=== PATIENT | male | born 1945 | race Caucasian/White ===

== ENCOUNTER → 2018-03-27 | Outpatient (CLI) | payer OTHER | END | disposition home or self-care (01) | LOC: CFH 08:47 | PROVIDERS: ATTEND Internal Medicine Critical Care Medicine | DX: J84.9 Interstitial pulmonary disease, unspecified (principal); J84.10 Pulmonary fibrosis, unspecified; R91.1 Solitary pulmonary nodule | CPT/HCPCS: 71250 ==

== ENCOUNTER → 2018-11-24 | Outpatient (CLI) | payer MEDICARE ==
[~2018-11-24] MED LIST: REGADENOSON 0.4 MG/5 ML SYRINGE ONE
== END | disposition home or self-care (01) ==
LOC: CFH 11:27
PROVIDERS: ATTEND Family Medicine
DX: R06.02 Shortness of breath (principal); I10 Essential (primary) hypertension
CPT/HCPCS: 78452; 93017; 93306; A9502; J2785

== ENCOUNTER 2019-01-05 09:29 | Day surgery (SDC) | payer MEDICARE ==
[~2019-01-05] VITALS: Ht 167.6 cm; Wt 95.5 kg
[2019-01-05 10:15] VITALS: BP 129/70
[2019-01-05] MEDS ORDERED: CALC-680 PO (10:24)
[2019-01-05] MEDS ORDERED: HYDR-3342 PO (10:24)
[2019-01-05] MEDS ORDERED: GLIP-33 PO (10:24)
[2019-01-05] MEDS ORDERED: FLUT16SP INH (10:24)
[2019-01-05] MEDS ORDERED: ALFA250T PO (10:24)
[2019-01-05] MEDS ORDERED: LOSA100T14 PO (10:24)
[2019-01-05] MEDS ORDERED: AMLO-150 PO (10:24)
[2019-01-05] MEDS ORDERED: ASCO500T8 PO (10:24)
[2019-01-05] MEDS ORDERED: FLAX10004 PO (10:24)
[2019-01-05] MEDS ORDERED: CYAN10005 PO (10:24)
[2019-01-05] MEDS ORDERED: ASPI81TA45 PO (10:24)
[2019-01-05] MEDS ORDERED: METO-93 PO (10:24)
[2019-01-05] MEDS ORDERED: MONT10TA9 PO (10:24)
[2019-01-05] MEDS ORDERED: CHOL5000 PO (10:24)
[2019-01-05] MEDS ORDERED: MIDAZOLAM 1 MG/ML, 5ML ONE (10:50)
[2019-01-05] MEDS ORDERED: TICAGRELOR 90 MG TABLET ONE (10:50)
[2019-01-05] MEDS ORDERED: HEPARIN 1,000 UNITS/ML, 10ML ONE (10:50)
[2019-01-05] MEDS ORDERED: FENTANYL PF 100 MCG/2ML ONE (10:50)
[2019-01-05] MEDS ORDERED: LIDOCAINE 2%, 20ML ONE (10:50)
[2019-01-05] MEDS ORDERED: BIVALIRUDIN 250 MG ONE (10:50)
[2019-01-05] MEDS ORDERED: VERAPAMIL 2.5 MG/ML, 2ML ONE (10:50)
[2019-01-05] MEDS ORDERED: NITROGLYCERIN 5 MG/ML, 10ML ONE (10:50)
[2019-01-05 11:02] LABS: ANION GAP 9 mmol/L (5-15); CALCIUM 9.6 mg/dL (8.5-10.1); CHLORIDE 108 mmol/L (98-107); CREATININE 1.47 mg/dL (0.7-1.3)
[2019-01-05] MEDS ORDERED: SODIUM CHLORIDE 0.9% 1,000 ML IV SCH (11:56)
[2019-01-05] MEDS ORDERED: ACETAMINOPHEN 325 MG TABLET PO PRN (12:00)
== END 2019-01-05 15:37 | disposition home or self-care (01) ==
LOC: CACL 09:29
PROVIDERS: ATTEND Internal Medicine Cardiovascular Disease
DX: I25.10 Atherosclerotic heart disease of native coronary artery without angina pectoris (principal); E11.22 Type 2 diabetes mellitus with diabetic chronic kidney disease; I12.9 Hypertensive chronic kidney disease with stage 1 through stage 4 chronic kidney disease, or unspecified chronic kidney disease; N18.3 Chronic kidney disease, stage 3 (moderate); Z79.82 Long term (current) use of aspirin; J84.10 Pulmonary fibrosis, unspecified; Z88.1 Allergy status to other antibiotic agents; Z88.0 Allergy status to penicillin; Z88.8 Allergy status to other drugs, medicaments and biological substances; Z79.84 Long term (current) use of oral hypoglycemic drugs; Z95.5 Presence of coronary angioplasty implant and graft
CPT/HCPCS: 36415; 80048; 93459; 99156; C1760; C1769; C1894; J1644; J2250; J3010; Q9967; J0583

== ENCOUNTER 2019-02-12 10:22 | Outpatient (CLI) | payer MEDICARE ==
[~2019-02-12 10:22] MED LIST changes: +ALFA250T PO; +AMLO-150 PO; +ASCO500T8 PO; +ASPI81TA45 PO; +CALC-680 PO; +CHOL5000 PO; +CYAN10005 PO; +FLAX10004 PO; +FLUT16SP24 INH; +GLIP-33 PO; +HYDR-3342 PO; +LOSA100T14 PO; +METO-93 PO; +MONT10TA9 PO; -REGADENOSON 0.4 MG/5 ML SYRINGE ONE
== END 2019-02-12 23:59 | disposition home or self-care (01) ==
LOC: CFH 10:22
PROVIDERS: ATTEND Nurse Practitioner Family
DX: J84.9 Interstitial pulmonary disease, unspecified (principal); J84.10 Pulmonary fibrosis, unspecified
CPT/HCPCS: 71250

== ENCOUNTER 2019-08-23 05:53 | Inpatient (IN) | payer MEDICARE ==
[~2019-08-23] VITALS: Ht 170.2 cm; Wt 98.5 kg
[~2019-08-23 05:53] MED LIST changes: +CYAN-27 PO; -CYAN10005 PO
[2019-08-23] MEDS ORDERED: SODIUM CHLORIDE FLUSH 10ML SYR IVF ONE (06:30)
--- NOTE | 2019-08-23 06:58 | NUR ---
PT C/O SOB THAT STARTED SEVERAL MONTHS AGO AND WAS TREATED FOR PNEUMONIA. PT STATES SOB HAS BEEN WORSENING AND ALSO C/O SWELLING AND PAIN IN THE RIGHT ARM/HAND THAT STARTED A MONTH AGO AND HAS WORSENED SO NOW HE IS LOSING MOTOR FUNCTION IN HIS RIGHT HAND. PT WEARS 3 L NC O2 AT HOME. PT ON 3 L NC HERE IN ED. PT ATTACHED TO ALL MONITORS. BC DRAWN X 2 SETS. PT STATES HE FEELS BETTER AND IS BREATHING BETTER NOW THAT HE IS GETTING SUPPLEMENTAL O2.
--- NOTE | 2019-08-23 07:00 | NUR ---
REPORT TO CLARK CINTRON
[2019-08-23 07:03] LABS: BASOPHILS # (AUTO) 0.01 x10^3/uL (0-0.1); BASOPHILS % (AUTO) 0 % (0-1); EOSINOPHILS # (AUTO) 0.26 x10^3/uL (0-0.4); EOSINOPHILS % (AUTO) 2 % (1-7); LYMPHOCYTES # (AUTO) 1.19 x10^3/uL (1-3.4); LYMPHOCYTES % (AUTO) 7 % (22-44); MD NO; MEAN CORPUSCULAR HEMOGLOBIN 29.4 pg (27.5-34.5); MEAN CORPUSCULAR HGB CONC 32.4 g/dL (33.2-36.2); MEAN CORPUSCULAR VOLUME 90.9 fL (81-97); MEAN PLATELET VOLUME 8.3 fL (7.4-10.4); MONOCYTES # (AUTO) 0.81 x10^3/uL (0.2-0.8); MONOCYTES % (AUTO) 5 % (2-9); NEUTROPHILS # (AUTO) 14.26 x10^3/uL (1.8-6.8); NEUTROPHILS % (AUTO) 86 % (42-75); PLATELET COUNT 220 x10^3/uL (130-400); RED BLOOD COUNT 4.16 x10^6/uL (4.38-5.82); RED CELL DISTRIBUTION WIDTH 15.4 % (9.4-14.8)
--- NOTE | 2019-08-23 07:16 | NUR ---
ASSUMED CARE. PT SITTING IN POSITION OF COMFORT, UPRIGHT IN GURNEY. CONTINUE TO MONITOR WHILE AWAITING ULTRASOUND
[2019-08-23 07:17] LABS: ALANINE AMINOTRANSFERASE 178 U/L (12-78); ALBUMIN 2.6 g/dL (3.4-5.0); ANION GAP 7 mmol/L (5-15); CALCIUM 8.8 mg/dL (8.5-10.1); CHLORIDE 104 mmol/L (98-107); CREATININE 1.26 mg/dL (0.7-1.3)
[2019-08-23 07:21] LABS: ALKALINE PHOSPHATASE 152 U/L (45-117); BILIRUBIN,TOTAL 1.1 mg/dL (0.2-1.0); TOTAL PROTEIN 7.6 g/dL (6.4-8.2)
[2019-08-23 07:24] LABS: TROPONIN I 0.515 ng/mL (0.000-0.045)
[2019-08-23] MEDS ORDERED: PRED1TAB19 PO (07:27)
--- NOTE | 2019-08-23 07:33 | NUR ---
OFF FLOOR TO ULTRASOUND
--- NOTE | 2019-08-23 08:09 | NUR ---
AFTER RETURNED FROM ULTRASOUND TO CT
[2019-08-23] MEDS ORDERED: VANCOMYCIN 1,800 MG in SODIUM CHLORIDE 0.9% 250 ML IV ONE (09:00)
[2019-08-23] MEDS ORDERED: CEFEPIME 2 GM in DEXTROSE 5% 100 ML IVPB ONE (09:00)
[2019-08-23] MEDS ORDERED: VANCOMYCIN PER PHARMACY MC ONE (09:00)
--- NOTE | 2019-08-23 09:22 | NUR ---
PT AWARE OF INTENTION TO ADMIT. ANTIBIOTICS INFUSING NOTED ON THE MAR. PT DISPLAYS INCREASE RATE OF BREATHING WHEN CONVERSING BUT SPEAKING IN FULL SENTENCES.
[2019-08-23] MEDS ORDERED: SODIUM CHLORIDE FLUSH 10ML SYR IVF PRN (09:30)
[2019-08-23] MEDS ORDERED: BENZ-17 PO (09:58)
[2019-08-23] MEDS ORDERED: OMNIPAQUE 350 MG/ML, 100ML BOTTLE ONE (10:50)
[2019-08-23] MEDS ORDERED: ONDANSETRON ODT 4 MG PO PRN (12:00)
[2019-08-23] MEDS ORDERED: morphine SULFATE 10 MG/ML, 1ML IVPush PRN (12:00)
[2019-08-23] MEDS ORDERED: POLYETHYLENE GLYCOL 17 GM PACKET PO PRN (12:00)
[2019-08-23] MEDS ORDERED: BISACODYL 10 MG SUPP PR PRN (12:00)
[2019-08-23] MEDS ORDERED: hydrALAzine 20 MG/ML, 1ML IVPush PRN (12:00)
[2019-08-23] MEDS ORDERED: PIPERACILLIN/TAZO/PMX 3.375GM 50 ML IV SCH (12:00)
[2019-08-23] MEDS ORDERED: PROMETHAZINE 25 MG/ML, 1ML IM PRN (12:00)
--- NOTE | 2019-08-23 12:00 | NUR ---
AFTER HOSPITALIST EVALUATION, PT UOB AND TO BATHROOM WITH PORTABLE OXYGEN. STEADY GAIT, INCREASED WOB WITH AMBULATION. ON RETURN TO ROOM PLACED ON HOSPITAL BED WHILE AWAITING ROOM ASSIGNMENT.
--- NOTE | 2019-08-23 12:33 | NUR ---
REPORT TO CALI RODAS. PT TO BE TRANSPORTED TO FLOOR.
[2019-08-23 12:56] LABS: FREE T4 (FREE THYROXINE) 1.33 ng/dL (0.76-1.46); PSA SCREEN 1.67 ng/mL (0.00-4.00)
[2019-08-23 13:23] LABS: INTERNATIONAL NORMALIZED RATIO 1.07 (0.93-1.1); PROTHROMBIN TIME 11.2 Seconds (9.6-11.5)
[2019-08-23 14:00] VITALS: BP 130/78
[2019-08-23 14:18] VITALS: BP 130/78
[2019-08-23] MEDS ORDERED: METRONIDAZOLE PMX 500MG/100ML 100 ML IV SCH (15:00)
[2019-08-23 15:04] LABS: TROPONIN I 0.523 ng/mL (0.000-0.045)
[2019-08-23] MEDS: GUAIFENESIN ER 600 MG TABLET PO SCH (15:33)
[2019-08-23] MEDS: LACTATED RINGERS 1,000 ML IV SCH ×2 (15:33→22:00)
[2019-08-23 16:23] LABS: MICROSCOPIC AUTO
[2019-08-23 16:46] LABS: CULTURE INDICATED? NO
[2019-08-23] MEDS: ERTAPENEM 1 GM in SODIUM CHLORIDE 0.9% 50 ML IV SCH (17:54)
[2019-08-23 19:55] VITALS: BP 126/76
[2019-08-23 20:42] LABS: TROPONIN I 0.466 ng/mL (0.000-0.045)
[2019-08-23] MEDS: ASCORBIC ACID 500 MG TABLET PO SCH (21:00)
[2019-08-23] MEDS: CALCIUM CITRATE 950 MG TABLET PO SCH (21:00)
[2019-08-23] MEDS ORDERED: CEFEPIME 2 GM in DEXTROSE 5% 100 ML IV SCH (21:00)
[2019-08-23] MEDS: FLUTICASONE NASAL SPRAY 16GM NAS SCH (21:00)
[2019-08-24 02:10] VITALS: BP 148/74
[2019-08-24] MEDS: GUAIFENESIN ER 600 MG TABLET PO SCH ×2 (03:22→16:13)
[2019-08-24 05:22] LABS: BASOPHILS # (AUTO) 0.03 x10^3/uL (0-0.1); BASOPHILS % (AUTO) 0 % (0-1); EOSINOPHILS # (AUTO) 0.18 x10^3/uL (0-0.4); EOSINOPHILS % (AUTO) 1 % (1-7); LYMPHOCYTES # (AUTO) 1.35 x10^3/uL (1-3.4); LYMPHOCYTES % (AUTO) 11 % (22-44); MD NO; MEAN CORPUSCULAR HEMOGLOBIN 29.5 pg (27.5-34.5); MEAN CORPUSCULAR HGB CONC 32.9 g/dL (33.2-36.2); MEAN CORPUSCULAR VOLUME 89.8 fL (81-97); MEAN PLATELET VOLUME 7.9 fL (7.4-10.4); MONOCYTES # (AUTO) 0.68 x10^3/uL (0.2-0.8); MONOCYTES % (AUTO) 5 % (2-9); NEUTROPHILS # (AUTO) 10.45 x10^3/uL (1.8-6.8); NEUTROPHILS % (AUTO) 82 % (42-75); PLATELET COUNT 143 x10^3/uL (130-400); RED BLOOD COUNT 3.44 x10^6/uL (4.38-5.82); RED CELL DISTRIBUTION WIDTH 15.6 % (9.4-14.8)
[2019-08-24 05:28] LABS: ALANINE AMINOTRANSFERASE 141 U/L (12-78); ALBUMIN 2.1 g/dL (3.4-5.0); ANION GAP 8 mmol/L (5-15); CALCIUM 8.1 mg/dL (8.5-10.1); CHLORIDE 107 mmol/L (98-107); CREATININE 1.08 mg/dL (0.7-1.3)
[2019-08-24 05:31] LABS: ALKALINE PHOSPHATASE 127 U/L (45-117); BILIRUBIN,TOTAL 0.9 mg/dL (0.2-1.0); CHOLESTEROL, TOTAL 108 mg/dL (140-239); HDL CHOL % 25 % (26-37); HDL CHOLESTEROL (DIRECT) 27 mg/dL (40-60); LDL CHOLESTEROL,CALCULATED 56 mg/dL (54-169); LDL/HDL RATIO 2.1 (0.5-3.0); TOTAL PROTEIN 6.2 g/dL (6.4-8.2); TRIGLYCERIDES 125 mg/dL (50-200); VLDL CHOLESTEROL 25 mg/dL (0-25)
[2019-08-24 07:31] VITALS: BP 152/80
[2019-08-24] MEDS: SENNA/DOCUSATE TABLET PO SCH (09:00)
[2019-08-24] MEDS ORDERED: ASPIRIN 81 MG TABLET EC PO SCH (09:00)
[2019-08-24] MEDS: CALCIUM CITRATE 950 MG TABLET PO SCH ×2 (09:40→22:37)
[2019-08-24] MEDS: ASCORBIC ACID 500 MG TABLET PO SCH ×2 (09:40→22:37)
[2019-08-24] MEDS: METOPROLOL SUCCINATE 50 MG TAB.ER.24H PO SCH (09:40)
[2019-08-24] MEDS: CHOLECALCIFEROL 5,000u TAB PO SCH (09:40)
[2019-08-24] MEDS: LOSARTAN 50MG TABLET PO SCH (09:40)
[2019-08-24] MEDS: CYANOCOBALAMIN 1,000 MCG TABLET PO SCH (09:40)
[2019-08-24] MEDS: MONTELUKAST 10 MG TABLET PO SCH (09:40)
[2019-08-24] MEDS: LINEZOLID PMX 600MG/300ML 300 ML IV SCH ×2 (10:08→22:37)
[2019-08-24] MEDS: FLUTICASONE NASAL SPRAY 16GM NAS SCH ×2 (10:09→22:37)
[2019-08-24] MEDS: INSULIN LISPRO 100 UNITS/ML, PEN SQ-INSULIN SCH ×3 (11:00→22:25)
[2019-08-24 12:15] LABS: RAPID INFLUENZA A Negative (Negative); RAPID INFLUENZA B Negative (Negative)
[2019-08-24] MEDS ORDERED: OMNIPAQUE 350 MG/ML, 100ML BOTTLE ONE (12:46)
[2019-08-24 14:19] VITALS: BP 124/73
[2019-08-24] MEDS: ERTAPENEM 1 GM in SODIUM CHLORIDE 0.9% 50 ML IV SCH (18:24)
[2019-08-24 20:07] VITALS: BP 131/80
[2019-08-24] MEDS ORDERED: ATORVASTATIN 40 MG TABLET PO SCH (21:00)
[2019-08-24] MEDS: ALBUTEROL SULFATE 2.5 MG/3 ML NPPB PRN (21:04)
[2019-08-25 02:11] VITALS: BP 136/79
[2019-08-25 05:13] LABS: ALBUMIN 2.2 g/dL (3.4-5.0); ANION GAP 7 mmol/L (5-15); CALCIUM 8.4 mg/dL (8.5-10.1); CHLORIDE 107 mmol/L (98-107)
[2019-08-25 05:15] LABS: MEAN CORPUSCULAR HEMOGLOBIN 29.4 pg (27.5-34.5); MEAN CORPUSCULAR HGB CONC 32.6 g/dL (33.2-36.2); MEAN CORPUSCULAR VOLUME 90.3 fL (81-97); RED BLOOD COUNT 3.71 x10^6/uL (4.38-5.82); RED CELL DISTRIBUTION WIDTH 15.3 % (9.4-14.8)
[2019-08-25 05:16] LABS: ALANINE AMINOTRANSFERASE 190 U/L (12-78); ALKALINE PHOSPHATASE 161 U/L (45-117); BILIRUBIN,TOTAL 1.3 mg/dL (0.2-1.0); CREATININE 1.23 mg/dL (0.7-1.3); TOTAL PROTEIN 6.6 g/dL (6.4-8.2)
[2019-08-25] MEDS: GUAIFENESIN ER 600 MG TABLET PO SCH ×2 (05:50→18:31)
[2019-08-25 06:15] LABS: BASOPHILS % (AUTO) 0 % (0-1); EOSINOPHILS # (AUTO) 0.31 x10^3/uL (0-0.4); EOSINOPHILS % (AUTO) 2 % (1-7); LYMPHOCYTES # (AUTO) 1.36 x10^3/uL (1-3.4); LYMPHOCYTES % (AUTO) 9 % (22-44); MD SCAN; MEAN PLATELET VOLUME 8.7 fL (7.4-10.4); MONOCYTES # (AUTO) 0.88 x10^3/uL (0.2-0.8); MONOCYTES % (AUTO) 6 % (2-9); NEUTROPHILS # (AUTO) 12.27 x10^3/uL (1.8-6.8); NEUTROPHILS % (AUTO) 83 % (42-75); PLATELET COUNT 148 x10^3/uL (130-400)
[2019-08-25 07:31] VITALS: BP 127/80
[2019-08-25] MEDS: INSULIN LISPRO 100 UNITS/ML, PEN SQ-INSULIN SCH ×4 (08:22→19:55)
[2019-08-25] MEDS: SENNA/DOCUSATE TABLET PO SCH (08:23)
[2019-08-25] MEDS: FLUTICASONE NASAL SPRAY 16GM NAS SCH ×2 (08:32→21:16)
[2019-08-25] MEDS: CYANOCOBALAMIN 1,000 MCG TABLET PO SCH (08:36)
[2019-08-25] MEDS: CALCIUM CITRATE 950 MG TABLET PO SCH ×2 (08:36→21:15)
[2019-08-25] MEDS: MONTELUKAST 10 MG TABLET PO SCH (08:36)
[2019-08-25] MEDS: ASCORBIC ACID 500 MG TABLET PO SCH ×2 (08:37→21:15)
[2019-08-25] MEDS: CHOLECALCIFEROL 5,000u TAB PO SCH (08:37)
[2019-08-25] MEDS: METOPROLOL SUCCINATE 50 MG TAB.ER.24H PO SCH (08:37)
[2019-08-25] MEDS: LOSARTAN 50MG TABLET PO SCH (08:38)
[2019-08-25] MEDS: LINEZOLID PMX 600MG/300ML 300 ML IV SCH ×2 (11:27→23:23)
[2019-08-25 11:34] LABS: INTERNATIONAL NORMALIZED RATIO 1.09 (0.93-1.1); PROTHROMBIN TIME 11.4 Seconds (9.6-11.5)
[2019-08-25 12:47] VITALS: BP 128/74
[2019-08-25 16:36] LABS: BASOPHILS # (AUTO) 0.04 x10^3/uL (0-0.1); BASOPHILS % (AUTO) 0 % (0-1); EOSINOPHILS % (AUTO) 1 % (1-7); LYMPHOCYTES # (AUTO) 1.22 x10^3/uL (1-3.4); LYMPHOCYTES % (AUTO) 9 % (22-44); MD NO; MEAN CORPUSCULAR HEMOGLOBIN 29.5 pg (27.5-34.5); MEAN CORPUSCULAR HGB CONC 32.1 g/dL (33.2-36.2); MEAN CORPUSCULAR VOLUME 91.8 fL (81-97); MEAN PLATELET VOLUME 8.6 fL (7.4-10.4); MONOCYTES # (AUTO) 1.03 x10^3/uL (0.2-0.8); MONOCYTES % (AUTO) 7 % (2-9); NEUTROPHILS # (AUTO) 11.62 x10^3/uL (1.8-6.8); NEUTROPHILS % (AUTO) 82 % (42-75); PLATELET COUNT 137 x10^3/uL (130-400); RED BLOOD COUNT 3.56 x10^6/uL (4.38-5.82); RED CELL DISTRIBUTION WIDTH 15.5 % (9.4-14.8)
[2019-08-25] MEDS: ERTAPENEM 1 GM in SODIUM CHLORIDE 0.9% 50 ML IV SCH (18:31)
[2019-08-25 21:08] VITALS: BP 128/69
[2019-08-26 01:34] VITALS: BP 126/80
[2019-08-26] MEDS: GUAIFENESIN ER 600 MG TABLET PO SCH ×2 (03:15→18:43)
[2019-08-26 05:41] LABS: BASOPHILS # (AUTO) 0.02 x10^3/uL (0-0.1); BASOPHILS % (AUTO) 0 % (0-1); EOSINOPHILS # (AUTO) 0.17 x10^3/uL (0-0.4); EOSINOPHILS % (AUTO) 1 % (1-7); LYMPHOCYTES # (AUTO) 1.27 x10^3/uL (1-3.4); LYMPHOCYTES % (AUTO) 10 % (22-44); MD NO; MEAN CORPUSCULAR HEMOGLOBIN 29.7 pg (27.5-34.5); MEAN CORPUSCULAR HGB CONC 32.5 g/dL (33.2-36.2); MEAN CORPUSCULAR VOLUME 91.6 fL (81-97); MEAN PLATELET VOLUME 8.9 fL (7.4-10.4); MONOCYTES # (AUTO) 0.96 x10^3/uL (0.2-0.8); MONOCYTES % (AUTO) 8 % (2-9); NEUTROPHILS # (AUTO) 10.19 x10^3/uL (1.8-6.8); NEUTROPHILS % (AUTO) 81 % (42-75); PLATELET COUNT 125 x10^3/uL (130-400); RED BLOOD COUNT 3.43 x10^6/uL (4.38-5.82); RED CELL DISTRIBUTION WIDTH 16.1 % (9.4-14.8)
[2019-08-26 05:46] LABS: CHLORIDE 106 mmol/L (98-107)
[2019-08-26 06:00] LABS: ALANINE AMINOTRANSFERASE 188 U/L (12-78); ALKALINE PHOSPHATASE 168 U/L (45-117); ANION GAP 8 mmol/L (5-15); BILIRUBIN,TOTAL 1.1 mg/dL (0.2-1.0); CALCIUM 8.7 mg/dL (8.5-10.1); TOTAL PROTEIN 6.3 g/dL (6.4-8.2)
[2019-08-26 07:21] VITALS: BP 124/81
[2019-08-26] MEDS: CALCIUM CITRATE 950 MG TABLET PO SCH ×2 (09:00→20:11)
[2019-08-26] MEDS ORDERED: MIDAZOLAM 1 MG/ML, 5ML ONE ×2 (09:28)
[2019-08-26] MEDS ORDERED: FENTANYL PF 100 MCG/2ML ONE (09:28)
[2019-08-26] MEDS: INSULIN LISPRO 100 UNITS/ML, PEN SQ-INSULIN SCH ×4 (09:45→20:11)
[2019-08-26 11:25] VITALS: BP 109/70
[2019-08-26] MEDS: FLUTICASONE NASAL SPRAY 16GM NAS SCH ×2 (11:34→20:10)
[2019-08-26] MEDS: METOPROLOL SUCCINATE 50 MG TAB.ER.24H PO SCH (11:35)
[2019-08-26] MEDS: MONTELUKAST 10 MG TABLET PO SCH (11:35)
[2019-08-26] MEDS: LOSARTAN 50MG TABLET PO SCH (11:35)
[2019-08-26] MEDS: DOXYCYCLINE 100MG TABLET PO SCH ×2 (11:35→20:11)
[2019-08-26] MEDS: CYANOCOBALAMIN 1,000 MCG TABLET PO SCH (11:36)
[2019-08-26] MEDS: ASCORBIC ACID 500 MG TABLET PO SCH ×2 (11:36→20:11)
[2019-08-26] MEDS: SENNA/DOCUSATE TABLET PO SCH (11:36)
[2019-08-26] MEDS: CHOLECALCIFEROL 5,000u TAB PO SCH (11:37)
[2019-08-26] MEDS: LINEZOLID PMX 600MG/300ML 300 ML IV SCH ×2 (12:19→23:53)
[2019-08-26 12:22] VITALS: BP 114/72
[2019-08-26] MEDS: ERTAPENEM 1 GM in SODIUM CHLORIDE 0.9% 50 ML IV SCH (19:29)
[2019-08-26 20:31] VITALS: BP 127/83
[2019-08-27 02:15] VITALS: BP 115/75
[2019-08-27 05:47] LABS: BASOPHILS # (AUTO) 0.01 x10^3/uL (0-0.1); BASOPHILS % (AUTO) 0 % (0-1); CHLORIDE 106 mmol/L (98-107); EOSINOPHILS # (AUTO) 0.21 x10^3/uL (0-0.4); EOSINOPHILS % (AUTO) 2 % (1-7); LYMPHOCYTES # (AUTO) 1.39 x10^3/uL (1-3.4); LYMPHOCYTES % (AUTO) 12 % (22-44); MD NO; MEAN CORPUSCULAR HEMOGLOBIN 29.5 pg (27.5-34.5); MEAN CORPUSCULAR HGB CONC 32.1 g/dL (33.2-36.2); MEAN CORPUSCULAR VOLUME 91.9 fL (81-97); MEAN PLATELET VOLUME 8.8 fL (7.4-10.4); MONOCYTES # (AUTO) 0.89 x10^3/uL (0.2-0.8); MONOCYTES % (AUTO) 7 % (2-9); NEUTROPHILS # (AUTO) 9.54 x10^3/uL (1.8-6.8); NEUTROPHILS % (AUTO) 79 % (42-75); PLATELET COUNT 134 x10^3/uL (130-400); RED BLOOD COUNT 3.49 x10^6/uL (4.38-5.82)
[2019-08-27] MEDS: GUAIFENESIN ER 600 MG TABLET PO SCH ×2 (05:50→19:04)
[2019-08-27 05:53] LABS: ALANINE AMINOTRANSFERASE 227 U/L (12-78); ALKALINE PHOSPHATASE 187 U/L (45-117); ANION GAP 9 mmol/L (5-15); BILIRUBIN,TOTAL 1.2 mg/dL (0.2-1.0); CALCIUM 8.3 mg/dL (8.5-10.1); CREATININE 1.18 mg/dL (0.7-1.3); TOTAL PROTEIN 6.1 g/dL (6.4-8.2)
[2019-08-27 07:07] VITALS: BP 121/77
[2019-08-27] MEDS: INSULIN LISPRO 100 UNITS/ML, PEN SQ-INSULIN SCH ×4 (07:18→21:18)
[2019-08-27] MEDS ORDERED: LIDOCAINE 4% TOPICAL SOLUTION 50 ML ONE (08:14)
[2019-08-27] MEDS ORDERED: LIDOCAINE GEL 2%, 5ML ONE (08:14)
[2019-08-27] MEDS: SENNA/DOCUSATE TABLET PO SCH (09:00)
[2019-08-27] MEDS: METOPROLOL SUCCINATE 50 MG TAB.ER.24H PO SCH (09:29)
[2019-08-27] MEDS: DOXYCYCLINE 100MG TABLET PO SCH ×2 (09:29→21:17)
[2019-08-27] MEDS ORDERED: MIDAZOLAM 1 MG/ML, 2ML ONE (11:20)
[2019-08-27] MEDS ORDERED: FENTANYL PF 250 MCG/5ML ONE (11:20)
[2019-08-27] MEDS ORDERED: PROPOFOL 50 ML ONE ×2 (11:20→12:47)
[2019-08-27] MEDS ORDERED: ONDANSETRON 2MG/ML, 2ML ONE (11:44)
[2019-08-27] MEDS ORDERED: DEXAMETHASONE 4 MG/ML, 1ML ONE (11:44)
[2019-08-27] MEDS ORDERED: SUCCINYLCHOLINE 20 MG/ML, 10ML ONE (11:44)
[2019-08-27] MEDS ORDERED: ROCURONIUM 10 MG/ML,10ML ONE (11:44)
[2019-08-27] MEDS ORDERED: DIAZEPAM 5 MG/ML, 2ML IVPush PRN (12:00)
[2019-08-27] MEDS: FLUTICASONE NASAL SPRAY 16GM NAS SCH ×2 (12:00→21:17)
[2019-08-27] MEDS ORDERED: PROMETHAZINE 25 MG/ML, 1ML IV PRN (12:00)
[2019-08-27] MEDS ORDERED: DIPHENHYDRAMINE 50 MG/ML, 1ML IVPush PRN (12:00)
[2019-08-27] MEDS ORDERED: MIDAZOLAM 1 MG/ML, 2ML IV PRN (12:00)
[2019-08-27] MEDS ORDERED: ONDANSETRON 2MG/ML, 2ML IV PRN (12:00)
[2019-08-27] MEDS ORDERED: ALBUTEROL/IPRATROPIUM 2.5MG/0.5MG, 3 ML NPPB PRN (12:00)
[2019-08-27] MEDS ORDERED: METOPROLOL 1 MG/ML, 5ML IV PRN (12:00)
[2019-08-27] MEDS ORDERED: EPHEDRINE 50 MG/ML, 1ML IVPush PRN (12:00)
[2019-08-27] MEDS ORDERED: EPHEDRINE 50 MG/ML, 1ML IM PRN (12:00)
[2019-08-27] MEDS ORDERED: ONDANSETRON ODT 8 MG PO PRN (12:00)
[2019-08-27] MEDS ORDERED: MORPHINE SULFATE 4 MG/ML, 1ML IVPush PRN (12:00)
[2019-08-27] MEDS ORDERED: OXYcodone 5 MG/5 ML ORAL.SOL UDC PO PRN (12:00)
[2019-08-27] MEDS ORDERED: FENTANYL PF 100 MCG/2ML IV PRN (12:00)
[2019-08-27] MEDS: LOSARTAN 50MG TABLET PO SCH (15:13)
[2019-08-27] MEDS: MONTELUKAST 10 MG TABLET PO SCH (15:13)
[2019-08-27] MEDS: LINEZOLID PMX 600MG/300ML 300 ML IV SCH (15:13)
[2019-08-27] MEDS: ASCORBIC ACID 500 MG TABLET PO SCH ×2 (15:13→21:17)
[2019-08-27] MEDS: CHOLECALCIFEROL 5,000u TAB PO SCH (15:14)
[2019-08-27] MEDS: CALCIUM CITRATE 950 MG TABLET PO SCH ×2 (15:23→21:17)
[2019-08-27] MEDS: CYANOCOBALAMIN 1,000 MCG TABLET PO SCH (15:24)
[2019-08-27 18:59] VITALS: BP 120/64
[2019-08-27] MEDS: ERTAPENEM 1 GM in SODIUM CHLORIDE 0.9% 50 ML IV SCH (21:17)
[2019-08-28 00:31] VITALS: BP 122/73
[2019-08-28] MEDS: LINEZOLID PMX 600MG/300ML 300 ML IV SCH ×2 (03:10→15:24)
[2019-08-28 04:29] LABS: BASOPHILS % (AUTO) 0 % (0-1); EOSINOPHILS # (AUTO) 0.12 x10^3/uL (0-0.4); EOSINOPHILS % (AUTO) 1 % (1-7); LYMPHOCYTES # (AUTO) 0.71 x10^3/uL (1-3.4); LYMPHOCYTES % (AUTO) 7 % (22-44); MD NO; MEAN CORPUSCULAR HEMOGLOBIN 29.6 pg (27.5-34.5); MEAN CORPUSCULAR HGB CONC 32.4 g/dL (33.2-36.2); MEAN CORPUSCULAR VOLUME 91.6 fL (81-97); MEAN PLATELET VOLUME 8.9 fL (7.4-10.4); MONOCYTES # (AUTO) 0.52 x10^3/uL (0.2-0.8); MONOCYTES % (AUTO) 5 % (2-9); NEUTROPHILS # (AUTO) 9.46 x10^3/uL (1.8-6.8); NEUTROPHILS % (AUTO) 88 % (42-75); PLATELET COUNT 129 x10^3/uL (130-400); RED BLOOD COUNT 3.17 x10^6/uL (4.38-5.82); RED CELL DISTRIBUTION WIDTH 15.9 % (9.4-14.8)
[2019-08-28 04:37] LABS: ALANINE AMINOTRANSFERASE 290 U/L (12-78); ALBUMIN 1.8 g/dL (3.4-5.0); ANION GAP 9 mmol/L (5-15); CALCIUM 7.9 mg/dL (8.5-10.1); CHLORIDE 107 mmol/L (98-107)
[2019-08-28 04:39] LABS: ALKALINE PHOSPHATASE 204 U/L (45-117); BILIRUBIN,TOTAL 1.3 mg/dL (0.2-1.0); CREATININE 1.57 mg/dL (0.7-1.3); TOTAL PROTEIN 5.7 g/dL (6.4-8.2)
[2019-08-28] MEDS: GUAIFENESIN ER 600 MG TABLET PO SCH ×2 (06:01→19:05)
[2019-08-28] MEDS ORDERED: SODIUM CHLORIDE 0.9% 1,000 ML IV SCH (07:30)
[2019-08-28] MEDS: INSULIN LISPRO 100 UNITS/ML, PEN SQ-INSULIN SCH ×4 (07:35→20:10)
[2019-08-28] MEDS: DOXYCYCLINE 100MG TABLET PO SCH ×2 (08:25→20:13)
[2019-08-28] MEDS: FLUTICASONE NASAL SPRAY 16GM NAS SCH ×2 (08:25→20:10)
[2019-08-28] MEDS: MONTELUKAST 10 MG TABLET PO SCH (08:25)
[2019-08-28] MEDS: LOSARTAN 50MG TABLET PO SCH (08:26)
[2019-08-28] MEDS: CYANOCOBALAMIN 1,000 MCG TABLET PO SCH (08:26)
[2019-08-28] MEDS: ASCORBIC ACID 500 MG TABLET PO SCH ×2 (08:26→20:10)
[2019-08-28] MEDS: SENNA/DOCUSATE TABLET PO SCH (08:26)
[2019-08-28] MEDS: METOPROLOL SUCCINATE 50 MG TAB.ER.24H PO SCH (08:26)
[2019-08-28] MEDS: CALCIUM CITRATE 950 MG TABLET PO SCH ×2 (08:26→20:10)
[2019-08-28] MEDS: CHOLECALCIFEROL 5,000u TAB PO SCH (08:26)
[2019-08-28 08:27] VITALS: BP 112/71
[2019-08-28 13:04] VITALS: BP 99/58
[2019-08-28 18:41] VITALS: BP 109/68
[2019-08-28] MEDS: ERTAPENEM 1 GM in SODIUM CHLORIDE 0.9% 50 ML IV SCH (21:24)
[2019-08-29] MEDS: OXYcodone IR 5MG TABLET PO PRN ×2 (00:35→20:28)
[2019-08-29 00:53] VITALS: BP 144/82
[2019-08-29] MEDS: LINEZOLID PMX 600MG/300ML 300 ML IV SCH ×2 (02:47→16:27)
[2019-08-29 04:53] LABS: BASOPHILS # (AUTO) 0.02 x10^3/uL (0-0.1); BASOPHILS % (AUTO) 0 % (0-1); EOSINOPHILS # (AUTO) 0.17 x10^3/uL (0-0.4); EOSINOPHILS % (AUTO) 1 % (1-7); LYMPHOCYTES # (AUTO) 1.18 x10^3/uL (1-3.4); LYMPHOCYTES % (AUTO) 10 % (22-44); MD NO; MEAN CORPUSCULAR HEMOGLOBIN 29.7 pg (27.5-34.5); MEAN CORPUSCULAR HGB CONC 32.1 g/dL (33.2-36.2); MEAN CORPUSCULAR VOLUME 92.6 fL (81-97); MEAN PLATELET VOLUME 8.4 fL (7.4-10.4); MONOCYTES # (AUTO) 0.75 x10^3/uL (0.2-0.8); MONOCYTES % (AUTO) 6 % (2-9); NEUTROPHILS # (AUTO) 10.27 x10^3/uL (1.8-6.8); NEUTROPHILS % (AUTO) 83 % (42-75); PLATELET COUNT 117 x10^3/uL (130-400); RED BLOOD COUNT 3.28 x10^6/uL (4.38-5.82); RED CELL DISTRIBUTION WIDTH 16.3 % (9.4-14.8)
[2019-08-29 05:03] LABS: CHLORIDE 108 mmol/L (98-107)
[2019-08-29 05:12] LABS: ALANINE AMINOTRANSFERASE 252 U/L (12-78); ALBUMIN 1.8 g/dL (3.4-5.0); ALKALINE PHOSPHATASE 220 U/L (45-117); ANION GAP 7 mmol/L (5-15); BILIRUBIN,TOTAL 0.9 mg/dL (0.2-1.0); CALCIUM 7.7 mg/dL (8.5-10.1); CREATININE 1.37 mg/dL (0.7-1.3); TOTAL PROTEIN 5.6 g/dL (6.4-8.2)
[2019-08-29] MEDS: GUAIFENESIN ER 600 MG TABLET PO SCH ×2 (05:27→18:30)
[2019-08-29] MEDS: INSULIN LISPRO 100 UNITS/ML, PEN SQ-INSULIN SCH ×4 (07:00→20:38)
[2019-08-29 07:07] VITALS: BP 131/77
[2019-08-29] MEDS ORDERED: LACTATED RINGERS 1,000 ML IV SCH (07:30)
[2019-08-29] MEDS: CHOLECALCIFEROL 5,000u TAB PO SCH (08:48)
[2019-08-29] MEDS: CALCIUM CITRATE 950 MG TABLET PO SCH ×2 (08:48→20:38)
[2019-08-29] MEDS: MONTELUKAST 10 MG TABLET PO SCH (08:48)
[2019-08-29] MEDS: CYANOCOBALAMIN 1,000 MCG TABLET PO SCH (08:48)
[2019-08-29] MEDS: DOXYCYCLINE 100MG TABLET PO SCH ×2 (08:48→20:28)
[2019-08-29] MEDS: METOPROLOL SUCCINATE 50 MG TAB.ER.24H PO SCH (08:49)
[2019-08-29] MEDS: ASCORBIC ACID 500 MG TABLET PO SCH ×2 (08:49→20:38)
[2019-08-29] MEDS: FLUTICASONE NASAL SPRAY 16GM NAS SCH ×2 (08:49→20:29)
[2019-08-29] MEDS: SENNA/DOCUSATE TABLET PO SCH (08:50)
[2019-08-29 13:29] VITALS: BP 144/78
[2019-08-29 13:35] VITALS: BP 122/75
[2019-08-29] MEDS ORDERED: morphine SULFATE 10 MG/ML, 1ML ONE (13:47)
[2019-08-29] MEDS: morphine SULFATE 10 MG/ML, 1ML IVPush PRN ×2 (13:52→14:25)
[2019-08-29] MEDS ORDERED: FUROSEMIDE 40 MG/4 ML IV ONE (14:00)
[2019-08-29 16:28] VITALS: BP 142/78
[2019-08-29 19:18] VITALS: BP 164/90
[2019-08-29] MEDS: ONDANSETRON 2MG/ML, 2ML IVPush PRN (19:46)
[2019-08-29] MEDS: ERTAPENEM 1 GM in SODIUM CHLORIDE 0.9% 50 ML IV SCH (20:29)
[2019-08-30] MEDS: ALBUTEROL SULFATE 2.5 MG/3 ML NPPB PRN (02:12)
[2019-08-30] MEDS: LINEZOLID PMX 600MG/300ML 300 ML IV SCH (03:18)
[2019-08-30 04:53] LABS: CHLORIDE 105 mmol/L (98-107)
[2019-08-30 04:56] LABS: MEAN CORPUSCULAR HEMOGLOBIN 29.4 pg (27.5-34.5); MEAN CORPUSCULAR HGB CONC 31.8 g/dL (33.2-36.2); MEAN CORPUSCULAR VOLUME 92.4 fL (81-97); MEAN PLATELET VOLUME 8.6 fL (7.4-10.4); PLATELET COUNT 124 x10^3/uL (130-400); RED BLOOD COUNT 3.62 x10^6/uL (4.38-5.82); RED CELL DISTRIBUTION WIDTH 16.4 % (9.4-14.8)
[2019-08-30 05:01] LABS: ALANINE AMINOTRANSFERASE 263 U/L (12-78); ALBUMIN 2.1 g/dL (3.4-5.0); ALKALINE PHOSPHATASE 240 U/L (45-117); ANION GAP 8 mmol/L (5-15); BILIRUBIN,TOTAL 1.1 mg/dL (0.2-1.0); CALCIUM 8.3 mg/dL (8.5-10.1); CREATININE 1.46 mg/dL (0.7-1.3); TOTAL PROTEIN 6.5 g/dL (6.4-8.2)
[2019-08-30 06:09] LABS: BASOPHILS % (AUTO) 0 % (0-1); EOSINOPHILS # (AUTO) 0.25 x10^3/uL (0-0.4); EOSINOPHILS % (AUTO) 2 % (1-7); LYMPHOCYTES # (AUTO) 1.23 x10^3/uL (1-3.4); LYMPHOCYTES % (AUTO) 8 % (22-44); MD SCAN; MONOCYTES # (AUTO) 0.78 x10^3/uL (0.2-0.8); MONOCYTES % (AUTO) 5 % (2-9); NEUTROPHILS # (AUTO) 13.12 x10^3/uL (1.8-6.8); NEUTROPHILS % (AUTO) 85 % (42-75)
[2019-08-30] MEDS: INSULIN LISPRO 100 UNITS/ML, PEN SQ-INSULIN SCH ×4 (06:40→20:32)
[2019-08-30] MEDS: GUAIFENESIN ER 600 MG TABLET PO SCH ×2 (06:40→18:16)
[2019-08-30] MEDS ORDERED: FUROSEMIDE 40 MG/4 ML IV ONE (08:00)
[2019-08-30] MEDS ORDERED: LIDOCAINE 1%, 20ML ONE (08:27)
[2019-08-30] MEDS: CYANOCOBALAMIN 1,000 MCG TABLET PO SCH (09:00)
[2019-08-30] MEDS: CALCIUM CITRATE 950 MG TABLET PO SCH ×2 (09:00→20:32)
[2019-08-30] MEDS: CHOLECALCIFEROL 5,000u TAB PO SCH (09:00)
[2019-08-30] MEDS: ASCORBIC ACID 500 MG TABLET PO SCH ×2 (09:00→20:32)
[2019-08-30] MEDS: FLUTICASONE NASAL SPRAY 16GM NAS SCH ×2 (09:00→21:00)
[2019-08-30] MEDS ORDERED: FENTANYL PF 100 MCG/2ML IVPush ONE (09:30)
[2019-08-30] MEDS: SENNA/DOCUSATE TABLET PO SCH (10:16)
[2019-08-30] MEDS: METOPROLOL SUCCINATE 50 MG TAB.ER.24H PO SCH (10:16)
[2019-08-30] MEDS: OXYcodone IR 5MG TABLET PO PRN ×2 (10:17→16:22)
[2019-08-30] MEDS: MONTELUKAST 10 MG TABLET PO SCH (10:17)
[2019-08-30] MEDS ORDERED: FENTANYL PF 100 MCG/2ML IV ONE (11:00)
[2019-08-30] MEDS: LEVOFLOXACIN/PMX 500MG/100ML 100 ML IV SCH (12:26)
[2019-08-30] MEDS: ONDANSETRON 2MG/ML, 2ML IVPush PRN (13:07)
[2019-08-31 04:21] LABS: MEAN CORPUSCULAR HEMOGLOBIN 30.2 pg (27.5-34.5); MEAN CORPUSCULAR HGB CONC 32.7 g/dL (33.2-36.2); MEAN CORPUSCULAR VOLUME 92.5 fL (81-97); RED BLOOD COUNT 3.47 x10^6/uL (4.38-5.82); RED CELL DISTRIBUTION WIDTH 16.5 % (9.4-14.8)
[2019-08-31 04:31] LABS: ANION GAP 10 mmol/L (5-15); CALCIUM 8.1 mg/dL (8.5-10.1); CHLORIDE 107 mmol/L (98-107); CREATININE 1.71 mg/dL (0.7-1.3)
[2019-08-31 04:43] LABS: BASOPHILS # (AUTO) 0.05 x10^3/uL (0-0.1); BASOPHILS % (AUTO) 0 % (0-1); EOSINOPHILS # (AUTO) 0.18 x10^3/uL (0-0.4); EOSINOPHILS % (AUTO) 1 % (1-7); LYMPHOCYTES # (AUTO) 1.09 x10^3/uL (1-3.4); LYMPHOCYTES % (AUTO) 7 % (22-44); MD SCAN; MEAN PLATELET VOLUME 8.6 fL (7.4-10.4); MONOCYTES # (AUTO) 0.82 x10^3/uL (0.2-0.8); MONOCYTES % (AUTO) 5 % (2-9); NEUTROPHILS # (AUTO) 13.58 x10^3/uL (1.8-6.8); NEUTROPHILS % (AUTO) 86 % (42-75); PLATELET COUNT 99 x10^3/uL (130-400)
[2019-08-31] MEDS: GUAIFENESIN ER 600 MG TABLET PO SCH ×2 (06:35→17:21)
[2019-08-31] MEDS: INSULIN LISPRO 100 UNITS/ML, PEN SQ-INSULIN SCH ×4 (07:00→21:40)
[2019-08-31] MEDS: CALCIUM CITRATE 950 MG TABLET PO SCH ×2 (08:43→21:39)
[2019-08-31] MEDS: ASCORBIC ACID 500 MG TABLET PO SCH ×2 (08:43→21:39)
[2019-08-31] MEDS: CYANOCOBALAMIN 1,000 MCG TABLET PO SCH (08:43)
[2019-08-31] MEDS: CHOLECALCIFEROL 5,000u TAB PO SCH (08:43)
[2019-08-31] MEDS: FLUTICASONE NASAL SPRAY 16GM NAS SCH ×2 (08:43→22:10)
[2019-08-31] MEDS: SENNA/DOCUSATE TABLET PO SCH (08:43)
[2019-08-31] MEDS: METOPROLOL SUCCINATE 50 MG TAB.ER.24H PO SCH (08:43)
[2019-08-31] MEDS: MONTELUKAST 10 MG TABLET PO SCH (08:43)
[2019-08-31] MEDS: SODIUM CHLORIDE 0.9% 1,000 ML IV SCH (10:53)
[2019-08-31] MEDS: LEVOFLOXACIN/PMX 500MG/100ML 100 ML IV SCH (10:53)
[2019-08-31 13:53] VITALS: BP 118/75
[2019-08-31] MEDS: OXYcodone IR 5MG TABLET PO PRN ×2 (14:47→21:39)
[2019-08-31 19:40] VITALS: BP 128/76
[2019-08-31] MEDS: morphine SULFATE 10 MG/ML, 1ML IVPush PRN (21:38)
[2019-08-31 21:54] VITALS: BP 128/75
[2019-09-01] MEDS: SODIUM CHLORIDE 0.9% 1,000 ML IV SCH ×2 (01:32→18:28)
[2019-09-01] MEDS: morphine SULFATE 10 MG/ML, 1ML IVPush PRN (03:24)
[2019-09-01 03:36] VITALS: BP 123/68
[2019-09-01 05:50] LABS: ANION GAP 7 mmol/L (5-15); CALCIUM 8.1 mg/dL (8.5-10.1); CHLORIDE 109 mmol/L (98-107); CREATININE 1.52 mg/dL (0.7-1.3)
[2019-09-01 05:59] LABS: BASOPHILS # (AUTO) 0.02 x10^3/uL (0-0.1); BASOPHILS % (AUTO) 0 % (0-1); EOSINOPHILS # (AUTO) 0.01 x10^3/uL (0-0.4); EOSINOPHILS % (AUTO) 0 % (1-7); LYMPHOCYTES # (AUTO) 0.89 x10^3/uL (1-3.4); LYMPHOCYTES % (AUTO) 7 % (22-44); MD SCAN; MEAN CORPUSCULAR HEMOGLOBIN 29.2 pg (27.5-34.5); MEAN CORPUSCULAR HGB CONC 32.4 g/dL (33.2-36.2); MEAN CORPUSCULAR VOLUME 90.3 fL (81-97); MEAN PLATELET VOLUME 8.2 fL (7.4-10.4); MONOCYTES # (AUTO) 0.44 x10^3/uL (0.2-0.8); MONOCYTES % (AUTO) 3 % (2-9); NEUTROPHILS # (AUTO) 12.07 x10^3/uL (1.8-6.8); NEUTROPHILS % (AUTO) 90 % (42-75); PLATELET COUNT 66 x10^3/uL (130-400); RED BLOOD COUNT 3.23 x10^6/uL (4.38-5.82); RED CELL DISTRIBUTION WIDTH 16.8 % (9.4-14.8)
[2019-09-01] MEDS: GUAIFENESIN ER 600 MG TABLET PO SCH ×2 (06:41→18:26)
[2019-09-01] MEDS: INSULIN LISPRO 100 UNITS/ML, PEN SQ-INSULIN SCH ×4 (07:00→21:00)
[2019-09-01 07:39] VITALS: BP 124/70
[2019-09-01] MEDS: MONTELUKAST 10 MG TABLET PO SCH ×2 (09:57→10:12)
[2019-09-01] MEDS: SENNA/DOCUSATE TABLET PO SCH (09:57)
[2019-09-01] MEDS: CYANOCOBALAMIN 1,000 MCG TABLET PO SCH (09:57)
[2019-09-01] MEDS: METOPROLOL SUCCINATE 50 MG TAB.ER.24H PO SCH (09:59)
[2019-09-01] MEDS: CALCIUM CITRATE 950 MG TABLET PO SCH ×2 (09:59→21:32)
[2019-09-01] MEDS: ASCORBIC ACID 500 MG TABLET PO SCH ×2 (10:00→21:32)
[2019-09-01] MEDS: CHOLECALCIFEROL 5,000u TAB PO SCH (10:00)
[2019-09-01] MEDS: FLUTICASONE NASAL SPRAY 16GM NAS SCH ×2 (10:12→21:32)
[2019-09-01 14:44] VITALS: BP 124/73
[2019-09-01] MEDS: OXYcodone IR 5MG TABLET PO PRN ×2 (18:09→22:40)
[2019-09-01 18:54] VITALS: BP 123/71
[2019-09-02] VITALS (7 sets, daily range): BP systolic 114–151; BP diastolic 65–84
[2019-09-02] MEDS: OXYcodone IR 5MG TABLET PO PRN (03:57)
[2019-09-02] MEDS: GUAIFENESIN ER 600 MG TABLET PO SCH ×2 (05:38→18:28)
[2019-09-02] MEDS: SODIUM CHLORIDE 0.9% 1,000 ML IV SCH (05:41)
[2019-09-02] MEDS ORDERED: EPINEPHRINE SYRINGE 0.1 MG/ML, 10ML ONE ×2 (08:00→21:03)
[2019-09-02] MEDS ORDERED: ATROPINE SYRINGE 0.1 MG/ML, 10ML ONE (08:00)
[2019-09-02] MEDS ORDERED: SODIUM BICARB 8.4%, 50ML SYRINGE ONE ×3 (08:00→21:03)
[2019-09-02] MEDS: SENNA/DOCUSATE TABLET PO SCH (08:04)
[2019-09-02] MEDS: CHOLECALCIFEROL 5,000u TAB PO SCH (08:04)
[2019-09-02] MEDS: ASCORBIC ACID 500 MG TABLET PO SCH (08:04)
[2019-09-02] MEDS: CALCIUM CITRATE 950 MG TABLET PO SCH (08:04)
[2019-09-02] MEDS: CYANOCOBALAMIN 1,000 MCG TABLET PO SCH (08:04)
[2019-09-02] MEDS: METOPROLOL SUCCINATE 50 MG TAB.ER.24H PO SCH (08:16)
[2019-09-02] MEDS: FLUTICASONE NASAL SPRAY 16GM NAS SCH (08:16)
[2019-09-02] MEDS: INSULIN LISPRO 100 UNITS/ML, PEN SQ-INSULIN SCH ×3 (08:19→16:54)
[2019-09-02 09:15] LABS: ANION GAP 7 mmol/L (5-15); CALCIUM 7.7 mg/dL (8.5-10.1); CHLORIDE 110 mmol/L (98-107)
[2019-09-02 09:16] LABS: CREATININE 1.38 mg/dL (0.7-1.3)
[2019-09-02 09:31] LABS: BASOPHILS # (AUTO) 0.02 x10^3/uL (0-0.1); BASOPHILS % (AUTO) 0 % (0-1); EOSINOPHILS # (AUTO) 0.23 x10^3/uL (0-0.4); EOSINOPHILS % (AUTO) 2 % (1-7); LYMPHOCYTES % (AUTO) 7 % (22-44); MD MORPH REVIEW ONLY; MEAN CORPUSCULAR HEMOGLOBIN 29.5 pg (27.5-34.5); MEAN CORPUSCULAR HGB CONC 32.3 g/dL (33.2-36.2); MEAN CORPUSCULAR VOLUME 91.4 fL (81-97); MEAN PLATELET VOLUME 7.8 fL (7.4-10.4); MONOCYTES # (AUTO) 0.62 x10^3/uL (0.2-0.8); MONOCYTES % (AUTO) 4 % (2-9); NEUTROPHILS # (AUTO) 13.46 x10^3/uL (1.8-6.8); NEUTROPHILS % (AUTO) 88 % (42-75); RED BLOOD COUNT 3.18 x10^6/uL (4.38-5.82); RED CELL DISTRIBUTION WIDTH 17.3 % (9.4-14.8)
[2019-09-02 09:44] LABS: PLATELET COUNT 42 x10^3/uL (130-400)
[2019-09-02 09:45] LABS: ANISOCYTOSIS 1+; POLYCHROMASIA 1+
[2019-09-02 09:46] LABS: ECHINOCYTES 1+
[2019-09-02 09:47] LABS: <PLATELET ESTIMATE> DECREASED; LARGE PLATELETS 1+
[2019-09-02] MEDS ORDERED: LEVOFLOXACIN/PMX 750MG/150ML 150 ML IV SCH (11:00)
[2019-09-02 15:09] LABS: INTERNATIONAL NORMALIZED RATIO 1.29 (0.93-1.1); PROTHROMBIN TIME 13.4 Seconds (9.6-11.5)
[2019-09-02] MEDS ORDERED: MIDAZOLAM 1 MG/ML, 5ML ONE (15:27)
[2019-09-02] MEDS ORDERED: FLUMAZENIL 0.1 MG/1 ML, 5ML ONE (15:27)
[2019-09-02] MEDS ORDERED: FENTANYL PF 100 MCG/2ML ONE (15:27)
[2019-09-02] MEDS ORDERED: NALOXONE 1 MG/ML, 2ML ONE (15:28)
[2019-09-02] MEDS ORDERED: ALBUMIN HUMAN 25% 200 ML ONE (18:34)
[2019-09-02] MEDS ORDERED: NOREPINEPHRINE 1 MG/ML, 4ML ONE ×2 (18:43→19:07)
[2019-09-02] MEDS ORDERED: SODIUM BICARB 8.4%,50ML SYR. 150 MEQ in DEXTROSE 5% 1,000 ML IV SCH (19:30)
[2019-09-02] MEDS ORDERED: SODIUM CHLORIDE 0.9%, 250ML ONE (21:03)
[2019-09-02] MEDS ORDERED: CALCIUM CHLORIDE 10%, 10ML SYR ONE (21:03)
[2019-09-02] MEDS ORDERED: EPINEPHRINE 1 MG/ML, 30ML ONE (21:03)
[2019-09-02] MEDS ORDERED: VASOPRESSIN 20 UNIT/ML, 1ML ONE (21:03)
== END 2019-09-02 22:56 | disposition expired | DRG 166 ==
LOC: ED 07:21 → EDIP 09:13 → 5SO 13:18 → 4WST 08-24 16:46 → CCU 08-29 22:14 → 4NW 08-31 12:47 → CCU 09-02 18:10
PROVIDERS: ADMIT Internal Medicine; ATTEND Hospitalist
PROC: 0WCQ8ZZ Extirpation of Matter from Respiratory Tract, Via Natural or Artificial Opening Endoscopic (ICD-10-PCS; 2019-08-26)
PROC: 07D78ZX Extraction of Thorax Lymphatic, Via Natural or Artificial Opening Endoscopic, Diagnostic (ICD-10-PCS; 2019-08-27)
PROC: 0W9930Z Drainage of Right Pleural Cavity with Drainage Device, Percutaneous Approach (ICD-10-PCS; principal; 2019-08-30)
PROC: 0FB23ZX Excision of Left Lobe Liver, Percutaneous Approach, Diagnostic (ICD-10-PCS; 2019-09-02)
PROC: 5A12012 Performance of Cardiac Output, Single, Manual (ICD-10-PCS; 2019-09-02)
PROC: 0BH17EZ Insertion of Endotracheal Airway into Trachea, Via Natural or Artificial Opening (ICD-10-PCS; 2019-09-02)
PROC: 30233R1 Transfusion of Nonautologous Platelets into Peripheral Vein, Percutaneous Approach (ICD-10-PCS; 2019-09-02)
DX: C34.32 Malignant neoplasm of lower lobe, left bronchus or lung (principal); J15.9 Unspecified bacterial pneumonia; J96.01 Acute respiratory failure with hypoxia; N17.0 Acute kidney failure with tubular necrosis; E43 Unspecified severe protein-calorie malnutrition; C78.7 Secondary malignant neoplasm of liver and intrahepatic bile duct; E87.1 Hypo-osmolality and hyponatremia; D68.69 Other thrombophilia; E87.2 Acidosis; I48.92 Unspecified atrial flutter; I24.8 Other forms of acute ischemic heart disease; J93.9 Pneumothorax, unspecified; R04.2 Hemoptysis; D64.9 Anemia, unspecified; I48.0 Paroxysmal atrial fibrillation; D69.6 Thrombocytopenia, unspecified; E11.22 Type 2 diabetes mellitus with diabetic chronic kidney disease; E55.9 Vitamin D deficiency, unspecified; E78.1 Pure hyperglyceridemia; I12.9 Hypertensive chronic kidney disease with stage 1 through stage 4 chronic kidney disease, or unspecified chronic kidney disease; E78.5 Hyperlipidemia, unspecified; I25.10 Atherosclerotic heart disease of native coronary artery without angina pectoris; I45.10 Unspecified right bundle-branch block; N18.9 Chronic kidney disease, unspecified; R21 Rash and other nonspecific skin eruption; R53.81 Other malaise; R60.0 Localized edema; R94.5 Abnormal results of liver function studies; I25.2 Old myocardial infarction; Z82.49 Family history of ischemic heart disease and other diseases of the circulatory system; Z87.891 Personal history of nicotine dependence; Z88.0 Allergy status to penicillin; Z95.5 Presence of coronary angioplasty implant and graft; Z95.1 Presence of aortocoronary bypass graft; Z68.34 Body mass index [BMI] 34.0-34.9, adult
CPT/HCPCS: 31622; 31629; 31632; 32557; 36415; 47000; 70460; 71045; 71275; 74018; 74177; 77012; 80048; 80053; 80061; 81001; 82378; 82962; 83036; 83605; 83690; 83735; 83880; 84100; 84145; 84439; 84443; 84484; 85025; 85049; 85610; 85730; 86301; 86850; 86900; 87040; 87081; 87400; 88172; 88173; 88177; 88305; 88307; 92950; 93005; 93306; 96365; 96375; 99152; 99153; 99156; 99157; G0103; G0378; J0461; J1100; J1335; J1940; J1956; J2020; J2250; J2405; J2704; J3010; J3370; J7613; Q0162; Q9967; C1729; J0171; J0330; J1815; J2270; J2310; J7030; J7050; J7120; P9035